=== PATIENT | male | born 1945 | race Caucasian/White ===

== ENCOUNTER → 2016-11-29 | Outpatient (CLI) | payer OTHER, MEDICARE | LOC: MMPC 11:11 | PROVIDERS: ATTEND Physician Assistant | DX: J01.40 Acute pansinusitis, unspecified (principal) | CPT/HCPCS: 99213; G0463 ==

== ENCOUNTER → 2016-12-25 | Outpatient (CLI) | payer OTHER, MEDICARE ==
[2016-12-25 16:24] LABS: HEMOGLOBIN A1C 6.22 % (4.2-6.0); MEAN BLOOD GLUCOSE (CALC) 121.126 mg/dL
[2016-12-25 16:30] LABS: CREATININE, URINE 66.3 MG/DL (15-500)
== END ==
LOC: MOB LAB 14:56
PROVIDERS: ATTEND Internal Medicine
DX: E11.9 Type 2 diabetes mellitus without complications (principal); E78.5 Hyperlipidemia, unspecified
CPT/HCPCS: 36415; 82043; 83036; 99214; G0463

== ENCOUNTER → 2017-03-01 | Outpatient (CLI) | payer OTHER, MEDICARE ==
--- NOTE | 2017-03-01 22:13 | DI ---
LUMBAR SPINE SERIES, 03/01/2017 4:39 PM: Clinical History: Left-sided low back pain without sciatica. Previous Exam: None at this facility. 3 routine upright views are submitted. Chronic compression fractures are present at T12 and L3. There is approximately 25% loss of height of T12 and less than 25% loss of height of L3. The remaining lum bar vertebral bodies are of normal height. Chronic disc space narrowing is present in all lumbar leve ls. There is a grade 1 spondylolisthesis at L4-5. Extensive degenerative arthritic changes are presen t bilaterally at L4-5 and L5-S1 but most pronounced on the right side at L5-S1. The pedicles and jerri ining posterior elements are unremarkable. Degenerative changes are present in both sacroiliac joints . Readin. Diffuse disc space narrowing at all lumbar levels. There is a grade 1 spondylolisthesis at L4-5. 2. 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
== END ==
LOC: ORTHO 16:49
PROVIDERS: ATTEND Orthopaedic Surgery
DX: M54.5 Low back pain (principal); M51.36 Other intervertebral disc degeneration, lumbar region; M47.816 Spondylosis without myelopathy or radiculopathy, lumbar region; M43.16 Spondylolisthesis, lumbar region
CPT/HCPCS: 72100; 99214; G0463

== ENCOUNTER → 2017-03-15 | Outpatient (CLI) | payer OTHER, MEDICARE | LOC: MMPC 10:00 | PROVIDERS: ATTEND Orthopaedic Surgery | DX: M51.37 Other intervertebral disc degeneration, lumbosacral region (principal); M47.816 Spondylosis without myelopathy or radiculopathy, lumbar region; M43.16 Spondylolisthesis, lumbar region | CPT/HCPCS: 99213; G0463 ==

== ENCOUNTER → 2017-03-22 | Outpatient (CLI) | payer OTHER, MEDICARE ==
--- NOTE | 2017-03-22 14:06 | DI ---
MRI LUMBAR SPINE W/O CN,03/22/2017 10:40 AM: Clinical History: Left-sided low back pain for 4 weeks. Previous Exam: None at this facility. Findings: Multiplanar MR images are obtained through the lumbar spine without contrast. There is mild dextroscoliosis of the mid lumbar spine centered at the L3/4 level. There is a single subcentimeter simple cyst within the right kidney. There is some compression deformities of the T12 and T11 levels. There is a trace amount of endplate edema at the L5/S1 level as well as the L3/L4 levels. There is significant facet arthropathy throughout. The major vascular flow voids are unremarkable. The spinal cord descends normally with normal course and are normal conus at the L5 level. Individual intervertebral disc spaces: L1/2: There is some disc desiccation and mild facet hypertrophy contributing to mild central canal st enosis and mild bilateral neural foraminal narrowing. L2/3: There is disc desiccation and a broad-based disc bulge with facet and ligamentum flavum hypertr ophy contributing to severe central canal stenosis with severe left lateral recess stenosis and mild right lateral recess stenosis. L3/4: There is disc desiccation, annular fissuring and a broad-based disc bulge combining with facet and ligamentum flavum hypertrophy to cause severe central canal stenosis with severe left and mild ri ght neuroforaminal narrowing. L4/5: There is grade 1 anterolisthesis of L4 on L5 with disc desiccation, a broad-based disc bulge an d annular fissuring combining with facet and ligamentum flavum hypertrophy to cause severe left and m oderate right lateral recess stenosis. L5/S1: There is disc desiccation, annular fissuring and a broad-based disc bulge combining with facet and ligamentum flavum hypertrophy to cause severe right and moderate left neural foraminal narrowing . Impression: L1/2: There is some disc desiccation and mild facet hypertrophy contributing to mild central canal st enosis and mild bilateral neural foraminal narrowing. L2/3: There is disc desiccation and a broad-based disc bulge with facet and ligamentum flavum hypertr ophy contributing to severe central canal stenosis with severe left lateral recess stenosis and mild right lateral recess stenosis. L3/4: There is disc desiccation, annular fissuring and a broad-based disc bulge combining with facet and ligamentum flavum hypertrophy to cause severe central canal stenosis with severe left and mild ri ght neuroforaminal narrowing. L4/5: There is grade 1 anterolisthesis of L4 on L5 with disc desiccation, a broad-based disc bulge an d annular fissuring combining with facet and ligamentum flavum hypertrophy to cause severe left and m oderate right lateral recess stenosis. L5/S1: There is disc desiccation, annular fissuring and a broad-based disc bulge combining with facet and ligamentum flavum hypertrophy to cause severe right and moderate left neural foraminal narrowing .
== END ==
LOC: MRI 10:35
PROVIDERS: ATTEND Orthopaedic Surgery
DX: M12.88 Other specific arthropathies, not elsewhere classified, other specified site (principal); M51.16 Intervertebral disc disorders with radiculopathy, lumbar region; M51.17 Intervertebral disc disorders with radiculopathy, lumbosacral region
CPT/HCPCS: 72148

== ENCOUNTER → 2017-04-02 | Outpatient (CLI) | payer OTHER, MEDICARE | LOC: MMPC 10:00 | PROVIDERS: ATTEND Orthopaedic Surgery | DX: M48.06 Spinal stenosis, lumbar region (principal); M43.16 Spondylolisthesis, lumbar region; M47.816 Spondylosis without myelopathy or radiculopathy, lumbar region; M51.36 Other intervertebral disc degeneration, lumbar region | CPT/HCPCS: 99214; G0463 ==

== ENCOUNTER → 2017-04-18 | Outpatient (CLI) | payer OTHER, MEDICARE ==
--- NOTE | 2017-04-18 14:52 | DI ---
XR L-SPINE 2-3 VW,04/18/2017 1:34 PM: Clinical History: Back pain Previous Exam: March 01, 2017 and CTA chest performed October 31, 2010 Findings: Lateral flexion and extension views of the lumbar spine are obtained and demonstrate near complete lo ss of intervertebral disc height throughout the lumbar spine. Endplate osteophyte formation is noted. Peripheral vascular calcifications are seen. There is no instability on flexion or extension. Impression: Advanced degenerative changes of the lumbar spine, which has worsened since 2009, but is unchanged si nce February.
== END ==
LOC: ORTHO 13:51
PROVIDERS: ATTEND Physician Assistant
DX: M54.5 Low back pain (principal); M47.26 Other spondylosis with radiculopathy, lumbar region; M48.06 Spinal stenosis, lumbar region
CPT/HCPCS: 72100; 99214; G0463

== ENCOUNTER → 2017-06-26 | Outpatient (CLI) | payer OTHER, MEDICARE ==
[2017-06-26 09:15] LABS: BUN/CREATININE RATIO 34.28 (6-20); CALCIUM 9.9 mg/dL (8.7-10.7); SERUM ALBUMIN 4.2 g/dL (3.5-4.8)
[2017-06-26 09:16] LABS: CHOL/HDL RATIO 3.26 RATIO (0-4.0); HEMOGLOBIN A1C 6.51 % (4.2-6.0)
[2017-06-26 09:28] LABS: CREATININE, URINE 71.1 MG/DL (15-500)
== END ==
LOC: LAB 08:24
PROVIDERS: ATTEND Internal Medicine
DX: E11.9 Type 2 diabetes mellitus without complications (principal); E78.5 Hyperlipidemia, unspecified; I10 Essential (primary) hypertension
CPT/HCPCS: 36415; 80053; 80061; 82043; 82550; 83036